=== PATIENT | female | born 1950 | race Caucasian/White ===

== ENCOUNTER 2017-10-04 14:08 | Day surgery (SDC) | payer MEDICARE, MEDICAID, SELFPAY ==
[2017-10-04 14:37] VITALS: BP 142/71; PULSE 78; RESP 16; TEMP 37.1; O2SAT 98; BMI 23.6
--- NOTE | 2017-10-04 14:47 | SUR.OPER ---
Supine on padded OR bed, head on pillow, arms secured on padded arm boards at <90 degrees abduction, legs uncrossed, safety belt at thigh, tape over blanket over lower legs.
[2017-10-04] MEDS: LACTATED RINGERS 1,000 ML 42 ML IV (14:50)
--- NOTE | 2017-10-04 15:08 | SUR.PREOP ---
pt states she had 2 tablesppons of coconut milk with water at 1000 with her pills anesthesia notified
[2017-10-04] MEDS: BUPIVACAINE 0.5% (PF) VIAL 30 ML INJ (15:32)
[2017-10-04] MEDS: LIDOCAINE 1% W/EPI INJ 20 ML INJ (15:33)
--- NOTE | 2017-10-04 15:45 | P.OP_ITS ---
Operative Date/Time/Diagnoses Date of procedure: 10/04/17 Time of procedure: 15:42 Pre-op diagnosis: Left subclavian Port-A-Cath no longer needed Procedure & Clinicians Procedure: Kait he was pretty removal of left chest PowerPort Same procedure as scheduled: Yes Indications: Chemotherapy completed and now no evidence of disease Surgeon: Misa Reyes Click Yes if Unassisted: Yes Anesthesia Type: MAC +/- (Dr. Cabrera) Operative Notes Findings: A PowerPort in good repair. Removed in a single piece Closure Type: primary Specimen(s): none sent Estimated Blood Loss (mL): 5 Procedure in detail: After obtaining informed consent, the patient was brought to the operating room and placed in the supine position on the operating table. Following successful induction of IV sedation with monitored anesthesia care, the chest was prepped and draped in the standard surgical fashion. A timeout was held per SCOAP protocol. Following infiltration with local anesthetic to create a field block, the existing healed incision was repeated. This was carried down through the skin and subcutaneous tissue to reveal the tubing of the implanted central venous device. The tubing was carefully dissected free from surrounding structures and delivered into the field. Pressure was held at the deltopectoral groove to prevent air embolus and backbleeding. After 5 minutes time, we continued with dissection of the remaining portion of the port. The reservoir itself remained in the pocket and has been incorporated into the tissue. This was carefully dissected free with judicious use of a scalpel. It was delivered into the field as a single piece with tubing attached. The incision was checked for hemostasis and irrigated with warm saline solution. Once we were satisfied that all was clean and dry, it was closed in 2 layers with Vicryl Monocryl sutures. Dermabond was applied to the skin incision. All sponge, needle, and instrument counts were correct at the conclusion of the case. The patient was allowed to awaken from sedation without difficulty and taken to the post anesthesia care unit in good condition. Complications: none Condition: stable Disposition: PACU Plan for aftercare: 1. Discharge to home 2. Follow-up as scheduled with [facility] 3. Follow-up our office for any concerns or problems
[2017-10-04 15:54] VITALS: BP 101/58; PULSE 71; RESP 16; TEMP 36.1; O2SAT 98
[2017-10-04 16:10] VITALS: BP 128/68; PULSE 74; RESP 16; TEMP 36; O2SAT 97
--- NOTE | 2017-11-13 16:55 | PM.HP.1 ---
History of Present Illness Date Patient Seen: 10/04/17 Time Patient Seen: 16:56 Chief complaint: [id number] Narrative: Very pleasant 66-year-old lady who is well known to me from prior visits. She presents today for removal of a Port-A-Cath. She had carries a diagnosis of locally recurrent breast malignancy and has completed chemotherapy. Her Port-A-Cath is no longer required. Patient History Surgical History History of bladder surgery (Acute) History of endometrial ablation (Acute) History of lumpectomy of right breast (Acute) Hx of bilateral mastectomy (Acute) Hx of dilation and curettage (Acute) Status post PICC central line placement (Acute) History of tonsillectomy Status post cholecystectomy Status post endometrial ablation Status post surgery (04/28/09) Family & Social History Social History: household members friend(s),none Tobacco & Substance use: Smoking Status Former smoker Substance Use Type does not use Meds Home Medications Medication Instructions Recorded Confirmed Type lorazepam 2 mg PO BID #0 08/17/12 11/02/17 History cholecalciferol (vitamin D3) 4,000 - 6,000 u PO QDAY #0 12/18/15 11/02/17 History [Vitamin D3] amitriptyline 50 mg PO HS #0 01/20/16 11/02/17 History [SUSTAIN EYE DROP] #0 03/16/16 11/02/17 History hydrocodone-acetaminophen 2 tab PO TID #0 05/18/16 11/02/17 History lidocaine-prilocaine 1 [place] TOPICAL PRN PRN #5 gm 05/18/16 11/02/17 Rx ascorbic acid (vitamin C) 1,500 mg PO BID #0 07/20/16 11/02/17 History multivitamin [Multiple Vitamins] 1 tab PO QDAY #0 07/20/16 11/02/17 History vitamin E 400 iu PO QDAY #0 07/20/16 11/02/17 History nefazodone 200 mg PO BID #0 11/29/16 11/02/17 History marya (Zingiber officinalis) 550 mg PO TID #0 01/10/17 11/02/17 History ondansetron 4 mg SUBLINGUAL Q6HP PRN #30 tab 03/07/17 11/02/17 Rx hydrocodone-acetaminophen [[place]] 1 tab PO Q6H PRN #30 tab MDD 6 10/04/17 11/02/17 Rx exemestane [Aromasin] 25 mg PO DAILY #90 tab 11/13/17 Rx Allergies Allergy/AdvReac Type Severity Reaction Status Date / Time walnut [WALNUT] Allergy Severe TONGUE Unverified 05/17/17 11:55 SWELLING Penicillins [PENICILLINS] Allergy Mild RASH all Unverified 05/17/17 11:55 cillins Review of Systems Review of Systems All systems reviewed & are unremarkable except as noted in HPI and below Exam Vital Signs (past 8 hours): Oxygen Delivery Method Room Air Narrative Exam Narrative: Very pleasant thin lady in no obvious distress HEENT: Normocephalic and atraumatic, pupils equal round reactive to light accommodation with anicteric sclera Lungs: Clear to auscultation bilaterally. Heart: Regular rate and rhythm without murmur rub or gallop. The port is noted in the left chest in the subclavian position. There is no evidence of erythema or drainage. Abdomen: Soft, nontender with active bowel sounds. Extremities: Warm well perfused Assessment & Plan Plan: Assessment/Plan Narrative: Very pleasant 66-year-old lady with a diagnosis of locally recurrent right breast cancer. She has completed chemotherapy and no longer has to use for her left subclavian port. We discussed risks and benefits of removing it and she has expressed desire to have the procedure.
--- NOTE | 2017-11-13 16:58 | P.HP_ITS ---
History of Present Illness Date Patient Seen: 10/04/17 Time Patient Seen: 16:56 Chief complaint: [id number] Narrative: Very pleasant 66-year-old lady who is well known to me from prior visits. She presents today for removal of a Port-A-Cath. She had carries a diagnosis of locally recurrent breast malignancy and has completed chemotherapy. Her Port-A-Cath is no longer required. Patient History Surgical History History of bladder surgery (Acute) History of endometrial ablation (Acute) History of lumpectomy of right breast (Acute) Hx of bilateral mastectomy (Acute) Hx of dilation and curettage (Acute) Status post PICC central line placement (Acute) History of tonsillectomy Status post cholecystectomy Status post endometrial ablation Status post surgery (04/28/09) Family & Social History Social History: household members friend(s),none Tobacco & Substance use: Smoking Status Former smoker Substance Use Type does not use Meds Home Medications Medication Instructions Recorded Confirmed Type lorazepam 2 mg PO BID #0 08/17/12 11/02/17 History cholecalciferol (vitamin D3) 4,000 - 6,000 u PO QDAY #0 12/18/15 11/02/17 History [Vitamin D3] amitriptyline 50 mg PO HS #0 01/20/16 11/02/17 History [SUSTAIN EYE DROP] #0 03/16/16 11/02/17 History hydrocodone-acetaminophen 2 tab PO TID #0 05/18/16 11/02/17 History lidocaine-prilocaine 1 [place] TOPICAL PRN PRN #5 gm 05/18/16 11/02/17 Rx ascorbic acid (vitamin C) 1,500 mg PO BID #0 07/20/16 11/02/17 History multivitamin [Multiple Vitamins] 1 tab PO QDAY #0 07/20/16 11/02/17 History vitamin E 400 iu PO QDAY #0 07/20/16 11/02/17 History nefazodone 200 mg PO BID #0 11/29/16 11/02/17 History marya (Zingiber officinalis) 550 mg PO TID #0 01/10/17 11/02/17 History ondansetron 4 mg SUBLINGUAL Q6HP PRN #30 tab 03/07/17 11/02/17 Rx hydrocodone-acetaminophen [[place]] 1 tab PO Q6H PRN #30 tab MDD 6 10/04/17 Rx exemestane [Aromasin] 25 mg PO DAILY #90 tab 11/13/17 Rx Allergies Allergy/AdvReac Type Severity Reaction Status Date / Time walnut [WALNUT] Allergy Severe TONGUE Unverified 05/17/17 11:55 SWELLING Penicillins [PENICILLINS] Allergy Mild RASH all Unverified 05/17/17 11:55 cillins Review of Systems Review of Systems All systems reviewed & are unremarkable except as noted in HPI and below Exam Vital Signs (past 8 hours): Oxygen Delivery Method Room Air Narrative Exam Narrative: Very pleasant thin lady in no obvious distress HEENT: Normocephalic and atraumatic, pupils equal round reactive to light accommodation with anicteric sclera Lungs: Clear to auscultation bilaterally. Heart: Regular rate and rhythm without murmur rub or gallop. The port is noted in the left chest in the subclavian position. There is no evidence of erythema or drainage. Abdomen: Soft, nontender with active bowel sounds. Extremities: Warm well perfused Assessment & Plan Plan: Assessment/Plan Narrative: Very pleasant 66-year-old lady with a diagnosis of locally recurrent right breast cancer. She has completed chemotherapy and no longer has to use for her left subclavian port. We discussed risks and benefits of removing it and she has expressed desire to have the procedure.
--- NOTE | 2017-11-30 20:51 | PM.HP.1 ---
History of Present Illness Date Patient Seen: 10/04/17 Time Patient Seen: 10:51 Chief complaint: [id number] Narrative: Very pleasant 66-year-old lady who is well known to me from prior visits. She presents today for removal of a Port-A-Cath. She had carries a diagnosis of locally recurrent breast malignancy and has completed chemotherapy. Her Port-A-Cath is no longer required. Patient History Medical History Anxiety (Acute) COPD (chronic obstructive pulmonary disease) (Acute) Chronic back pain (Acute) Closed head injury with concussion (Acute) Cytopenia (Acute) Depression (Acute) Fatigue (Acute) Fibromyalgia (Acute) GERD (gastroesophageal reflux disease) (Acute) HTN (hypertension) (Acute) History of DVT (deep vein thrombosis) (Acute) Kidney stones (Acute) Migraine headache (Acute) Osteoporosis (Acute) Pancytopenia (Acute) Port-A-Cath in place (Acute) Recurrent cancer of right breast (Acute) Staph infection (Acute) Uterine mass (Acute) Surgical History History of bladder surgery (Acute) History of endometrial ablation (Acute) History of lumpectomy of right breast (Acute) Hx of bilateral mastectomy (Acute) Hx of dilation and curettage (Acute) Status post PICC central line placement (Acute) History of tonsillectomy Status post cholecystectomy Status post endometrial ablation Status post surgery (04/28/09) Family & Social History Family History: Reviewed 11/30/17 by Misa Reyes MD Social History: household members friend(s),none Tobacco & Substance use: Smoking Status Former smoker Substance Use Type does not use Meds Home Medications Medication Instructions Recorded Confirmed Type cholecalciferol (vitamin D3) 4,000 - 6,000 u PO QDAY #0 12/18/15 11/14/17 History [Vitamin D3] amitriptyline 50 mg PO HS #0 01/20/16 11/14/17 History [SUSTAIN EYE DROP] #0 03/16/16 11/02/17 History hydrocodone-acetaminophen 2 tab PO TID #0 05/18/16 11/14/17 History lidocaine-prilocaine 1 [place] TOPICAL PRN PRN #5 gm 05/18/16 11/02/17 Rx ascorbic acid (vitamin C) 1,500 mg PO BID #0 07/20/16 11/14/17 History multivitamin [Multiple Vitamins] 1 tab PO QDAY #0 07/20/16 11/14/17 History vitamin E 400 iu PO QDAY #0 07/20/16 11/02/17 History nefazodone 200 mg PO BID #0 11/29/16 11/14/17 History marya (Zingiber officinalis) 550 mg PO TID #0 01/10/17 11/14/17 History ondansetron 4 mg SUBLINGUAL Q6HP PRN #30 tab 03/07/17 11/14/17 Rx exemestane [Aromasin] 25 mg PO DAILY #90 tab 11/13/17 11/14/17 Rx lorazepam 2 mg PO BID 11/14/17 11/14/17 History Allergies Allergy/AdvReac Type Severity Reaction Status Date / Time walnut [WALNUT] Allergy Severe TONGUE Verified 11/14/17 08:35 SWELLING Penicillins [PENICILLINS] Allergy Intermediate RASH all Verified 11/14/17 09:15 cillins Review of Systems Review of Systems All systems reviewed & are unremarkable except as noted in HPI and below Exam Vital Signs (past 8 hours): Oxygen Delivery Method Room Air Narrative Exam Narrative: Very pleasant elderly lady in no obvious distress. HEENT: Normocephalic and atraumatic, pupils equal round reactive to light accommodation with anicteric sclera Lungs: Clear to auscultation bilaterally Heart: Regular rate and rhythm without murmur rub or gallop Abdomen: Soft, nontender, active bowel sounds Extremities: Warm well perfused Chest: Power port in place in the left chest wall and without evidence of erythema or infection. Assessment & Plan Plan: Assessment/Plan Narrative: One full 67-year-old lady here for PowerPort removal. We discussed the risks and benefits of the procedure and she has expressed a desire to complete it today
== END 2017-10-04 16:15 | disposition home or self-care (01) ==
PROVIDERS: Family Provider Family Medicine; PCP Family Medicine; Visit Provider Surgery
PROC: (CPT 36590; principal; 2017-10-04 15:00)
DX: Z45.2 Encounter for adjustment and management of vascular access device (principal); Z85.3 Personal history of malignant neoplasm of breast; Z87.891 Personal history of nicotine dependence
CPT/HCPCS: 36590; J2250; J2405; J2704; J3010

== ENCOUNTER 2017-11-14 07:52 | Day surgery (SDC) | payer MEDICARE, MEDICAID, SELFPAY ==
[2017-11-14] MEDS: PROPARACAINE 0.5% OPHTH SOL 2 DROPS EYE-OP (08:55)
[2017-11-14 08:57] VITALS: BMI 18.1
[2017-11-14 09:01] VITALS: BP 137/70; PULSE 66; RESP 18; TEMP 37.1; O2SAT 97
[2017-11-14] MEDS: CATARACT EYE COMPOUND (10 DROPS/SYRINGE) 3 DROPS EYE-OP (09:04)
--- NOTE | 2017-11-14 09:40 | P.OP.PRE_ITS ---
Pre-operative Note Interval Note Changes: No
--- NOTE | 2017-11-14 09:40 | PM.PREOP ---
Pre-operative Note Interval Note Changes: No
--- NOTE | 2017-11-14 09:41 | P.OP_ITS ---
Operative Date/Time/Diagnoses Pre-op diagnosis: Cataract Right eye Post-op diagnosis: same Procedure & Clinicians Procedure: Cataract Surgery Same procedure as scheduled: Yes Surgeon: Go Noe Anesthesia Type: MAC +/- and Sedation Operative Notes Procedure in detail: Patient brought to the operating suite. Tetracaine drops placed in the right eye. Patient was prepped and draped in sterile manner. Wire lid speculum was placed in the eye. Betadine drops were placed on the eye. This was irrigated. Lidocaine jelly was placed on the eye. A paracentesis port was created with a side-port blade. 0.1 mL 1% preservative free lidocaine was injected into the anterior chamber. The anterior chamber was deepened with viscoelastic. 2.6 mm keratome was used to create a temporal clear corneal incision. Cystotome and Utrata forceps were used to create continuous tear capsulorrhexis. Balanced salt solution was used to hydro dissect the nucleus. The phacoemulsification handpiece was inserted and the nucleus was removed using the stop and chop technique. The irrigation aspiration handpiece was inserted and the remaining cortex was removed. Anterior chamber was deepened with viscoelastic. An Proctor ZCB00 intraocular lens with a power of 16.5 was injected into the capsular bag. Irrigation aspiration handpiece was inserted and the remaining viscoelastic was removed. Incision was hydrated with balanced salt solution and found to be leak free with pressure with Weck- Yohana sponges. 0.1 mL Vigamox injected anterior chamber. 0.3 mL Kenalog 10 mg was injected subconjunctivally. Lid speculum was removed. The patient left the operating room in excellent condition. Complications: none Condition: stable Disposition: same day surgery
[2017-11-14] MEDS: CHONDROIDTIN/SOD HYALURONATE 1.05 ML SYRINGE INTRAOCULA (09:56)
[2017-11-14] MEDS: LIDOCAINE JELLY 2% 5 ML 1 APPLIC TOP (09:56)
[2017-11-14] MEDS: MOXIFLOXACIN OPHTH DROPS 3 ML BOTTLE 2 DROPS INJ (09:56)
[2017-11-14] MEDS: BALANCED SALT IRRIG SOLN NO.2 500 ML, EPINEPHrine 1 MG IRR (09:57)
[2017-11-14] MEDS: PHENYLEPHRINE/LIDOCAINE VIAL (OR) 0.2 ML EYE-OP (09:57)
[2017-11-14] MEDS: TRIAMCINOLONE 50 MG/5 ML VIAL INJ (09:57)
[2017-11-14] MEDS: TETRACAINE 0.5% OPHTH DROPS 15 ML 2 DROPS EYE-RIGHT (09:57)
[2017-11-14 10:15] VITALS: BP 157/67; PULSE 77; RESP 16; TEMP 36.7; O2SAT 100
--- NOTE | 2017-11-14 10:30 | SUR.PHASEII ---
friend present for instructions, pt left when ready and left in stable condition.
== END 2017-11-14 10:26 ==
LOC: OR 07:54
PROVIDERS: PCP Family Medicine; Visit Provider Ophthalmology
DX: H25.11 Age-related nuclear cataract, right eye (principal); I10 Essential (primary) hypertension
CPT/HCPCS: J0171; J2250; J3010; J3301

== ENCOUNTER 2018-01-02 09:25 | Day surgery (SDC) | payer MEDICARE, MEDICAID, SELFPAY ==
[2018-01-02 10:04] VITALS: BP 126/77; PULSE 72; RESP 16; TEMP 36.4; O2SAT 95; BMI 23.9
[2018-01-02] MEDS: PROPARACAINE 0.5% OPHTH SOL 2 DROPS EYE-OP (10:05)
[2018-01-02] MEDS: CATARACT EYE COMPOUND (10 DROPS/SYRINGE) 3 DROPS EYE-OP (10:15)
--- NOTE | 2018-01-02 11:09 | P.OP.PRE_ITS ---
Pre-operative Note Interval Note Changes: No
--- NOTE | 2018-01-02 11:09 | P.OP_ITS ---
Operative Date/Time/Diagnoses Pre-op diagnosis: Nuclear Cataract Left eye Post-op diagnosis: same Procedure & Clinicians Surgeon: Go Noe Anesthesia Type: MAC +/- and Sedation Operative Notes Procedure in detail: Patient brought to the operating suite. Tetracaine drops placed in the left eye. Patient was prepped and draped in sterile manner. Wire lid speculum was placed in the eye. Betadine drops were placed on the eye. This was irrigated. Lidocaine jelly was placed on the eye. A paracentesis port was created with a side-port blade. 0.1 mL 1% preservative free lidocaine was injected into the anterior chamber. The anterior chamber was deepened with viscoelastic. 2.6 mm keratome was used to create a temporal clear corneal incision. Cystotome and Utrata forceps were used to create continuous tear capsulorrhexis. Balanced salt solution was used to hydro dissect the nucleus. The phacoemulsification handpiece was inserted and the nucleus was removed using the stop and chop technique. The irrigation aspiration handpiece was inserted and the remaining cortex was removed. Anterior chamber was deepened with viscoelastic. An Proctor ZCB00 intraocular lens with a power of 17.5 was injected into the capsular bag. Irrigation aspiration handpiece was inserted and the remaining viscoelastic was removed. Incision was hydrated with balanced salt solution and found to be leak free with pressure with Weck- Yohana sponges. 0.1 mL Vigamox injected anterior chamber. 0.3 mL Kenalog 10 mg was injected subconjunctivally. Lid speculum was removed. The patient left the operating room in excellent condition. Complications: none Condition: stable Disposition: same day surgery
--- NOTE | 2018-01-02 11:09 | PM.PREOP ---
Pre-operative Note Interval Note Changes: No
[2018-01-02] MEDS: PHENYLEPHRINE/LIDOCAINE VIAL (OR) 0.2 ML EYE-OP (11:24)
[2018-01-02] MEDS: MOXIFLOXACIN OPHTH DROPS 3 ML BOTTLE 2 DROPS INJ (11:24)
[2018-01-02] MEDS: CHONDROIDTIN/SOD HYALURONATE 1.05 ML SYRINGE INTRAOCULA (11:25)
[2018-01-02] MEDS: LIDOCAINE JELLY 2% 5 ML 1 APPLIC TOP (11:25)
[2018-01-02] MEDS: TRIAMCINOLONE 50 MG/5 ML VIAL INJ (11:25)
[2018-01-02] MEDS: TETRACAINE 0.5% OPHTH DROPS 15 ML 2 DROPS EYE-LEFT (11:26)
[2018-01-02] MEDS: BALANCED SALT IRRIG SOLN NO.2 500 ML, EPINEPHrine 1 MG IRR (11:26)
[2018-01-02 11:41] VITALS: BP 137/69; PULSE 59; RESP 15; TEMP 36.4; O2SAT 100
== END 2018-01-02 11:52 ==
LOC: OR 09:27
PROVIDERS: PCP Family Medicine; Visit Provider Ophthalmology
DX: H25.12 Age-related nuclear cataract, left eye (principal); I10 Essential (primary) hypertension
CPT/HCPCS: J0171; J2250; J3010; J3301

== ENCOUNTER → 2018-06-01 10:43 | Outpatient (CLI) | payer MEDICARE, MEDICAID, SELFPAY ==
--- NOTE | 2018-06-01 10:53 | DI.CT.S_ITS ---
PROCEDURE: CT SINUS SCREEN WO CON INDICATIONS: Anosmia TECHNIQUE: Noncontrast 3.0 mm axial images acquired from the frontal sinuses to the mid-sella, with coronal and sagittal reformats. For radiation dose reduction, the following was used: automated exposure control, adjustment of mA and/or kV according to patient size. COMPARISON: [facility], MR, BRAIN W&WO CONTRAST, 08/05/2016, 16:41. [facility], CT, HEAD WITHOUT CONTRAST, 08/05/2016, 0:39. FINDINGS: Image quality: Excellent. Maxillary Sinuses: There is partial absence of the medial taveras of the maxillary sinuses. There is a tiny mucous retention cyst seen along the medial wall of the right maxillary sinus, as on series 3 image 11. Ethmoid Air Cells: No bony remodeling or destruction. Sinuses are clear. Sphenoid Sinuses: No bony remodeling or destruction. Sinuses are clear. Frontal Sinuses: No bony remodeling or destruction. Sinuses are clear. Ostiomeatal Complexes: Ostiomeatal complexes are patent. However, they are constitutionally narrowed with bilateral orbital air cells Miscellaneous: There is apparent brain parenchymal volume loss seen involving the left parietal region, which may related to a remote infarct. This is stable compared to 2017. There is a small right-sided beck bullosa. There is moderate rightward nasal septal deviation seen, with a rightward directed bony nasal septal spur. IMPRESSION: No significant active paranasal sinus disease is seen. Partial absence of the medial taveras of the maxillary sinuses. Please correlate with known patient history. Narrowed (yet patent) ostiomeatal complexes. Moderate rightward nasal septal deviation, with a rightward directed bony nasal septal spur. Dictated by: Jeremiah Bernardo M.D. on 06/01/2018 at 10:58 Approved by: Jeremiah Bernardo M.D. on 06/01/2018 at 11:01
== END ==
PROVIDERS: PCP Family Medicine; Visit Provider Otolaryngology
DX: R43.0 Anosmia (principal); J34.89 Other specified disorders of nose and nasal sinuses; J34.2 Deviated nasal septum; J34.3 Hypertrophy of nasal turbinates
CPT/HCPCS: 70486

== ENCOUNTER → 2018-10-26 11:41 | Outpatient (CLI) | payer MEDICARE, MEDICAID, SELFPAY ==
[2018-10-26 12:04] LABS: Add Manual Diff / Slide Review NO; Basophils Absolute Auto 0 /uL (0-100); Basophils Percent Auto 0.4 % (0-2); Eosinophils Absolute Auto 100 /uL (0-450); Eosinophils Percent Auto 4.5 % (2-4); Hematocrit 38.2 % (36-46); Hemoglobin 13.1 g/dL (12.0-16.0); Lymphocytes Absolute Auto 900 /uL (1100-4500); Lymphocytes Percent Auto 27.9 % (25-40); Mean Corpuscular HGB Conc 34.3 % (30-36); Mean Corpuscular Hemoglobin 31.5 PG (26-34); Mean Corpuscular Volume 91.7 fL (80-100); Monocytes Absolute Auto 400 /uL (0-900); Monocytes Percent Auto 11.7 % (3-14); Neutrophils Absolute Auto 1700 /uL (1500-7000); Neutrophils Percent Auto 55.5 % (50-75); Platelet Count 177 X10^3/uL (150-400); Red Blood Cell Count 4.16 X10^6/uL (4.0-5.2); Red Cell Distribution Width 13.5 % (11.6-14.8); White Blood Cell Count 3.1 X10^3/uL (4.5-11.0)
[2018-10-26 12:15] LABS: Alanine Aminotransferase 22 IU/L (9-52); Albumin 4.6 g/dL (3.5-5.0); Albumin Globulin Ratio 1.5 (1.0-2.8); Alkaline Phosphatase 57 U/L (38-126); Aspartate Aminotransferase 31 IU/L (14-36); Bilirubin Total 0.6 mg/dL (0.2-1.3); Blood Urea Nitrogen 13 mg/dL (7-17); Carbon Dioxide 29 mmol/L (22-32); Chloride 100 mmol/L (98-107); Estimated Glomerular Filt Rate 55.3 mL/min (>60); Glucose 85 mg/dL (80-110); HEMOLYSIS < 15 (0-50); Lactate Dehydrogenase 442 U/L (313-618); Sodium 140 mmol/L (137-145); Total Protein 7.6 g/dL (6.3-8.2)
[2018-10-26 12:24] LABS: HEMOLYSIS < 15 (0-50); Iron 78 ug/dL (37-170)
[2018-10-26 12:35] LABS: Percent Iron Saturation 22 % (15-50); Total Iron Binding Capacity 352 ug/dL (265-497); Transferrin 310 mg/dL (206-381)
[2018-10-26 12:40] LABS: Vitamin D 25 Hydroxy (D3) 66.8 ng/mL (30.0-100.0)
[2018-10-26 12:52] LABS: Ferritin 66.1 ng/mL (11.1-264)
[2018-10-26 13:23] LABS: Folate > 20.0 ng/mL (2.76-20.0)
== END ==
PROVIDERS: PCP Family Medicine; Visit Provider Internal Medicine Hematology & Oncology
DX: C50.919 Malignant neoplasm of unspecified site of unspecified female breast (principal)
CPT/HCPCS: 36415; 80053; 82306; 82728; 82746; 83540; 83550; 83615; 85025

== ENCOUNTER → 2018-11-09 13:26 | Outpatient (CLI) | payer MEDICARE, MEDICAID, SELFPAY | PROVIDERS: PCP Family Medicine; Visit Provider Internal Medicine Hematology & Oncology | DX: C50.919 Malignant neoplasm of unspecified site of unspecified female breast (principal); M81.0 Age-related osteoporosis without current pathological fracture; Z78.0 Asymptomatic menopausal state; Z87.891 Personal history of nicotine dependence | CPT/HCPCS: 77080; 77081 ==

== ENCOUNTER 2019-10-15 11:26 | Emergency (ER) | payer MEDICARE, MEDICAID, SELFPAY ==
[2019-10-15] VITALS (7 sets, daily range): BP systolic 185–231; BP diastolic 77–111; PULSE 73–79; RESP 15; TEMP 36.6; O2SAT 94–98; BMI 25.9
--- NOTE | 2019-10-15 11:39 | DI.RAD.S_ITS ---
PROCEDURE: XR WRIST LT MIN 3V INDICATIONS: s/p FOOSH, pain in wrist, hand, FA TECHNIQUE: 4 views of the wrist were acquired. COMPARISON: None. FINDINGS: Bones: Acute impacted distal radial and ulnar shaft fractures are seen with minimal dorsal and medial displacement at fracture sites and shortening of distal radial and ulnar shaft. Minimally displaced ulnar styloid tip fracture is also seen. No suspicious bony lesions. Scaphoid view: Scaphoid is grossly intact. Soft tissues: No suspicious soft tissue calcifications. IMPRESSION: Acute impacted distal radial and ulnar shaft fractures as above. Minimally displaced ulnar styloid tip fracture. Dictated by: Sushant Laughlin M.D. on 10/15/2019 at 12:35 Approved by: Sushant Laughlin M.D. on 10/15/2019 at 12:54
--- NOTE | 2019-10-15 11:39 | DI.RAD.S_ITS ---
PROCEDURE: XR HIP W PEL IF DONE LT 2V INDICATIONS: s/p FOOSH and fell on hip, pain in wrist, hand, FA, hip pain TECHNIQUE: AP pelvis with lateral view(s) of the left hip(s). COMPARISON: None. FINDINGS: Bones: No fractures or dislocations. Pelvic ring appears intact. No suspicious bony lesions. Bilateral hip joint osteoarthritic changes are seen. No evidence of avascular necrosis of femoral head. Soft tissues: The visualized bowel gas pattern is normal. No suspicious soft tissue calcifications. IMPRESSION: No gross acute pelvic or left hip fracture. No hip dislocation. Bilateral hip joint osteoarthritis. Dictated by: Sushant Laughlin M.D. on 10/15/2019 at 12:54 Approved by: Sushant Laughlin M.D. on 10/15/2019 at 12:54
--- NOTE | 2019-10-15 11:39 | DI.RAD.S_ITS ---
PROCEDURE: XR FOREARM RT 2V INDICATIONS: s/p FOOSH, pain in wrist, hand, FA TECHNIQUE: 2 views of the forearm were acquired. COMPARISON: None. FINDINGS: Bones: Acute slightly impacted distal radial and ulnar shaft fractures are seen with minimal dorsal and medial displacement at fracture site. Minimally displaced ulnar styloid tip fracture is also noted. No dislocation. Wrist joint osteoarthritic changes are seen. No suspicious bony lesions. Soft tissues: No suspicious soft tissue calcifications or masses. IMPRESSION: Acute impacted and minimally displaced distal radial and ulnar shaft fractures. Minimally displaced ulnar styloid tip fracture. Dictated by: Sushant Laughlin M.D. on 10/15/2019 at 12:32 Approved by: Sushant Laughlin M.D. on 10/15/2019 at 12:35
--- NOTE | 2019-10-15 11:43 | ED_ITS ---
HPI - Fall <Reymundo CINDY Estrada - Last Filed: 10/15/19 14:29> General Chief Complaint: Fall Stated Complaint: GLF Time Seen by Provider: 10/15/19 11:26 Source: patient Mode of arrival: Ambulatory Limitations: no limitations History of Present Illness HPI Narrative: This is a 68 year female, nonsmoker, who has history of osteoporosis and fibromyalgia presents to ED with [facility] from home with chief complain of non dominant hand left wrist, forearm, hand and left hip pain. She had fell backwards on outstretched arm after she accidentally tripped right heel on chair with her body twisted and landed on left buttock. She denies on anticoagulants or platelets. She denies hitting her head or reports neck pain. Patient states takes hydrocodone 10/325 2 tabs twice a day with Ativan 1mg for chronic pain and fibromyalgia. She reports pain is 10/10 and this increases with movements or when it is touched. Patient reports is able to move her fingers but with pain and intact sensation. Patient is able to move her toes with intact sensation distally in left leg. Related Data Home Medications Medication Instructions Recorded Confirmed cholecalciferol (vitamin D3) 4,000 - 6,000 u PO QDAY #0 12/18/15 10/25/18 [Vitamin D3] amitriptyline 50 mg PO HS #0 01/20/16 10/25/18 [SUSTAIN EYE DROP] #0 03/16/16 11/02/17 hydrocodone-acetaminophen 2 tab PO TID #0 05/18/16 10/25/18 ascorbic acid (vitamin C) 1,500 mg PO BID #0 07/20/16 10/25/18 multivitamin [Multiple Vitamins] 1 tab PO QDAY #0 07/20/16 10/25/18 nefazodone 200 mg PO BID #0 11/29/16 10/25/18 marya (Zingiber officinalis) 550 mg PO TID #0 01/10/17 10/25/18 lorazepam 1 mg PO BID 11/14/17 10/25/18 Previous Rx's Medication Instructions Recorded exemestane [Aromasin] 25 mg PO DAILY #90 tab 10/25/18 ondansetron 4 mg SUBLINGUAL Q6HP PRN #30 tab 10/25/18 Allergies Allergy/AdvReac Type Severity Reaction Status Date / Time walnut [WALNUT] Allergy Severe TONGUE Verified 10/15/19 11:29 SWELLING Penicillins [PENICILLINS] Allergy Intermediate RASH all Verified 10/15/19 11:29 cillins Review of Systems <CINDY Bradley - Last Filed: 10/15/19 14:29> Review of Systems Narrative: General: Denies fever, chills, fatigue, malaise, sweats. HEENT: Denies sinus pain, ear pain, sore throat, difficulty swallowing, dizziness. Respiratory: Denies dyspnea, cough, wheezing, hemoptysis, sputum. Cardiovascular: Denies chest pain, palpitations, orthopnea, edema. Gastrointestinal: Denies nausea, vomiting, abdominal pain, diarrhea, c onstipation, melena. : Denies dysuria, frequency, incontinence, hematuria, urinary retention. Musculoskeletal: See HPI Skin: Denies rash, skin lesions, or other. Neurologic: Denies weakness, headache, numbness, change in speech, confusion, seizures, incoordination. Psychiatric: No concerning psychosocial issues. 12-point review of systems is negative except for those stated above. Patient History <CINDY Bradley - Last Filed: 10/15/19 14:29> Medical History Anxiety (Acute) Chronic back pain (Acute) Closed head injury with concussion (Acute) COPD (chronic obstructive pulmonary disease) (Acute) Cytopenia (Acute) Depression (Acute) Fatigue (Acute) Fibromyalgia (Acute) GERD (gastroesophageal reflux disease) (Acute) History of DVT (deep vein thrombosis) (Acute) HTN (hypertension) (Acute) Kidney stones (Acute) Migraine headache (Acute) Osteoporosis (Acute) Pancytopenia (Acute) Port-A-Cath in place (Acute) Recurrent cancer of right breast (Acute) Staph infection (Acute) Uterine mass (Acute) Surgical History History of bladder surgery (Acute) History of endometrial ablation (Acute) History of lumpectomy of right breast (Acute) History of tonsillectomy Hx of bilateral mastectomy (Acute) Hx of dilation and curettage (Acute) Status post cholecystectomy Status post endometrial ablation Status post PICC central line placement (Acute) Status post surgery (04/28/09) Family History Mother Breast cancer Social History household members: friend(s) and none occupational status: previously employed Smoking Status: Former smoker alcohol intake: never substance use type: does not use Smoking Status: Former smoker alcohol intake frequency: holidays/special occasions only Substance Use Type: does not use Exam <CINDY Bradley - Last Filed: 10/15/19 14:29> Narrative Exam Narrative: GEN: Alert, oriented x 3, thin appearing and in moderate distress from pain. Head: Normal cephalic, atraumatic. No scalp or temporal tenderness, palpable mass or rash. EYES: Pupils are equal, round, and reactive to light and accommodation. Extraocular muscles are intact bilaterally. There is no subconjunctival hemorrhage, exudate and sclera non-icteric. ENT: Hearing grossly intact. Nose without bleeding, purulent discharge or deviation. Airway patent. Neck: Trachea in midline. No JVD, non-tender without lymphadenopathy. No masses or thyroid megaly. Supple, non-tender and no meningeal signs. CARDIAC: Normal regular rate and rhythm without murmurs, gallops, or rubs. No chest wall tenderness. No peripheral edema, cyanosis or pallor. Capillary refill is less than 2 seconds. RESPIRATORY: Lungs are clear to auscultate bilaterally. No cough, wheezes, rales, or rhonchi. No stridor, respiratory distress, increase work of breathing, or accessary muscle used. ABD: Abdomen soft, nontender and non-distended. No guarding or rebound tenderness to palpate. Bowel sounds are normal in all 4 quadrants. There is no palpable masses or organomegaly. SKIN: Warm, dry, normal color for patient. No erythema, lesions or rash over visible areas. BACK: Nontender without deformity or crepitance. No flank tenderness. NEUROLOGICAL: Alert and oriented to place, time and person. Sensation and motor function intact bilaterally. No facial droops, dysphasia. PSYCHIATRIC: Good judgement and reason, without hallucinations. Initial Vital Signs Initial Vital Signs: Vital Signs Temperature 97.8 F 10/15/19 11:24 Pulse Rate 79 10/15/19 11:24 Respiratory Rate 15 10/15/19 11:24 Blood Pressure 231/91 H 10/15/19 11:24 Pulse Oximetry 98 10/15/19 11:24 Extrem Left upper extremity: elbow/forearm Details: normal to inspection, tenderness Location: of the mid-shaft forearm, abnormal ROM Details: pain with active ROM and pain with passive ROM and distal pulses intact; no swelling and no abrasions, wrist Details: abnormal to inspection Details: obvious deformity and joint swelling, tenderness Location: of the distal radius, of the distal ulna, of the anatomic snuffbox, of the dorsal wrist and of the volar wrist, swelling Location: of the dorsal wrist (radial aspect), abnormal ROM Details: held in an abnormal fashion Details: in flexion and pain with active ROM, ecchymosis (radial aspect ), deformity Details: other (flexed wrist to keep comfort), normal vascular exam and radial pulse present; no unusual warmth, no abrasions and no lacerations and hand Details: normal to inspection, normal capillary refill, neuromotor exam normal, neurosensory exam normal, tenderness (metacarpal), vascular exam Details: radial pulse present and normal capillary refill and normal ROM of fingers Left lower extremity: hip/thigh Details: tenderness Location: of the hip and normal ROM Psych Appearance: well kempt Mood: anxious mood and irritable mood Affect: anxious affect and irritable affect <Jenifer Newton MD - Last Filed: 10/15/19 14:59> Initial Vital Signs Initial Vital Signs: Vital Signs Temperature 97.8 F 10/15/19 11:24 Pulse Rate 79 10/15/19 11:24 Respiratory Rate 15 10/15/19 11:24 Blood Pressure 231/91 H 10/15/19 11:24 Pulse Oximetry 98 10/15/19 11:24 Scores <CINDY Bradley - Last Filed: 10/15/19 14:29> GCS [place] coma scale eye opening: Spontaneous [place] coma scale verbal response: Orientated [place] coma scale motor response: Obey commands [place] coma scale total score: 15 Course <CINDY Bradley - Last Filed: 10/15/19 14:29> Orders Ordered: ED Orders 10/15/19 11:39 XR forearm LT 2V Stat XR hip w pel if done LT 2V Stat XR wrist LT min 3V Stat Discontinued Medications Lorazepam (Ativan) 1 mg PO NOW ONE Stop: 10/15/19 11:46 Last Admin: 10/15/19 11:54 Dose: 1 mg Documented by: GISELLE Oxycodone/Acetaminophen (Percocet 5/325) 2 tab PO NOW ONE Stop: 10/15/19 11:40 Last Admin: 10/15/19 11:54 Dose: 2 tab Documented by: GISELLE Reevaluation(s) Reevaluation #1: Patient reports pain improved, slightly increased swelling around the wrist worsen radial aspect of far pain Time: 13:45 Consultations Consultation #1: Dr. Driscoll consulted with the xray and physical findings and he recommended sugar-tong splint with sling and pain management and to follow-up at the clinic and of this week or next week. Time: 14:00 Vital Signs Vital signs: Vital Signs - 8 hr 10/15/19 11:24 10/15/19 12:06 10/15/19 12:29 Temperature 97.8 F Pulse Rate 79 77 Respiratory Rate 15 Blood Pressure 231/91 H 196/81 H Pulse Oximetry 98 94 10/15/19 12:31 10/15/19 13:00 10/15/19 13:02 Temperature Pulse Rate 73 Respiratory Rate Blood Pressure 185/111 H 199/77 H Pulse Oximetry 96 10/15/19 13:22 Temperature Pulse Rate 76 Respiratory Rate Blood Pressure Pulse Oximetry 97 <Jenifer Newton MD - Last Filed: 10/15/19 14:59> Orders Ordered: ED Orders 10/15/19 11:39 XR forearm LT 2V Stat XR hip w pel if done LT 2V Stat XR wrist LT min 3V Stat Discontinued Medications Lorazepam (Ativan) 1 mg PO NOW ONE Stop: 10/15/19 11:46 Last Admin: 10/15/19 11:54 Dose: 1 mg Documented by: GISELLE Oxycodone/Acetaminophen (Percocet 5/325) 2 tab PO NOW ONE Stop: 10/15/19 11:40 Last Admin: 10/15/19 11:54 Dose: 2 tab Documented by: GISELLE Vital Signs Vital signs: Vital Signs - 8 hr 10/15/19 11:24 10/15/19 12:06 10/15/19 12:29 Temperature 97.8 F Pulse Rate 79 77 Respiratory Rate 15 Blood Pressure 231/91 H 196/81 H Pulse Oximetry 98 94 10/15/19 12:31 10/15/19 13:00 10/15/19 13:02 Temperature Pulse Rate 73 Respiratory Rate Blood Pressure 185/111 H 199/77 H Pulse Oximetry 96 10/15/19 13:22 Temperature Pulse Rate 76 Respiratory Rate Blood Pressure Pulse Oximetry 97 MDM - Fall <CINDY Bradley - Last Filed: 10/15/19 14:29> Differential Diagnosis Differential diagnosis: Likely fracture of wrist and other (Fracture of forearm, forearm pain, hip fracture, hips contusion) Medical Records Attestation: I reviewed the patient's medical records. Imaging Data XR-Wrist LT: Radiologist's Impression: [address] [address] XRay Report Signed Patient: Sandrine Hastings [facility]#: [id number] : [id number] Age/Sex: 68 / FDate of Service: 10/15/19 Loc: ED Accession Number: [id number] Procedure: XR wrist LT min 3V Ordering Provider: Reymundo Estrada PROCEDURE: XR WRIST LT MIN 3V INDICATIONS: s/p FOOSH, pain in wrist, hand, FA TECHNIQUE: 4 views of the wrist were acquired. COMPARISON: None. FINDINGS: Bones: Acute impacted distal radial and ulnar shaft fractures are seen with minimal dorsal and medial displacement at fracture sites and shortening of distal radial and ulnar shaft. Minimally displaced ulnar styloid tip fracture is also seen. No suspicious bony lesions. Scaphoid view: Scaphoid is grossly intact. Soft tissues: No suspicious soft tissue calcifications. IMPRESSION: Acute impacted distal radial and ulnar shaft fractures as above. Minimally displaced ulnar styloid tip fracture. Dictated by: Sushant Laughlin M.D. on 10/15/2019 at 12:35 Approved by: Sushant Laughlin M.D. on 10/15/2019 at 12:54 XR-Forearm LT: Radiologist's Impression: [address] [address] XRay Report Signed Patient: Sandrine Hastings [facility]#: [id number] : [id number] Age/Sex: 68 / FDate of Service: 10/15/19 Loc: ED Accession Number: [id number] Procedure: XR forearm LT 2V Ordering Provider: Reymundo Estrada PROCEDURE: XR FOREARM RT 2V INDICATIONS: s/p FOOSH, pain in wrist, hand, FA TECHNIQUE: 2 views of the forearm were acquired. COMPARISON: None. FINDINGS: Bones: Acute slightly impacted distal radial and ulnar shaft fractures are seen with minimal dorsal and medial displacement at fracture site. Minimally displaced ulnar styloid tip fracture is also noted. No dislocation. Wrist joint osteoarthritic changes are seen. No suspicious bony lesions. Soft tissues: No suspicious soft tissue calcifications or masses. IMPRESSION: Acute impacted and minimally displaced distal radial and ulnar shaft fractures. Minimally displaced ulnar styloid tip fracture. Dictated by: Sushant Laughlin M.D. on 10/15/2019 at 12:32 Approved by: Sushant Laughlin M.D. on 10/15/2019 at 12:35 XR-Hip LT: Radiologist's Impression: [place] [address] XRay Report Signed Patient: Sandrine Hastings [facility]#: [id number] : [id number] Age/Sex: 68 / FDate of Service: 10/15/19 Loc: ED Accession Number: [id number] Procedure: XR hip w pel if done LT 2V Ordering Provider: Reymundo Estrada PROCEDURE: XR HIP W PEL IF DONE LT 2V INDICATIONS: s/p FOOSH and fell on hip, pain in wrist, hand, FA, hip pain TECHNIQUE: AP pelvis with lateral view(s) of the left hip(s). COMPARISON: None. FINDINGS: Bones: No fractures or dislocations. Pelvic ring appears intact. No suspicious bony lesions. Bilateral hip joint osteoarthritic changes are seen. No evidence of avascular necrosis of femoral head. Soft tissues: The visualized bowel gas pattern is normal. No suspicious soft tissue calcifications. IMPRESSION: No gross acute pelvic or left hip fracture. No hip dislocation. Bilateral hip joint osteoarthritis. Dictated by: Sushant Laughlin M.D. on 10/15/2019 at 12:54 Approved by: Sushant Laughlin M.D. on 10/15/2019 at 12:54 [facility] Narrative Medical decision making narrative: This is a 68 year female who has osteoporosis presents to ED after FOOSH and landed on left arm and hip falling backwards after tripped. Left wrist has moderate swelling on radial aspect. Distal pulse and sensation is intact. Patient is able to move her fingers but with pain. X-ray test shows acute impacted distal radial and ulna shaft fracture with minimally displaced ulna styloid tip fracture. Appreciate Dr. Driscoll's recommendation. Affected arm has been placed done sugar-tong splint and applied a sling for elevation. Patient advised to use her pain medications up to 3 to 4 times a day as needed for discomfort and to contact her primary care physician to inform about the fracture. Advised to RICE therapy and to follow-up with [facility]. Return precautions were discussed with patient and advised to be careful with sedation and balance along constipation when she is on pain medication and Ativan. Patient verbalized understanding and agreement with the treatment plan. Discharge Plan Departure Patient Disposition: Home Clinical Impression: Forearm fractures, both bones, closed Qualifiers: Encounter type: initial encounter Laterality: left Qualified Code(s): S52.92XA - Unspecified fracture of left forearm, initial encounter for closed fracture Instructions: DI for Forearm Fracture Activity Restrictions/Additional Instructions: You have been diagnosed with [left distal radial and ulna shaft fracture with mildly displaced and impacted with minimally displaced ulna styloid tip fracture. You arm has been placed on sugar-tong splint and please wear this all time and use sling to elevate affected arm. Please avoid getting it wet.]. What to do: *Take your medications as directed. You can use your pain medication more frequently for severe pain. Ibuprofen 400 mg up to 3 to 4 times a day as needed for pain and inflammation to decrease swelling. Cool pack frequently for next couple of days. And elevate affected arm to decrease swelling. *Follow up with your primary care provider in 2-3 days, call for an appointment. Please follow-up with [facility] orthopedist by calling the office. Let them know you were seen in the ED and that we asked you to be seen in follow up. *Return to ED if you have any new, worsening, or concerning symptoms, such as [worsening pain, tingling/numbness/pale fingertips, chest pain, breathing difficulty, unable to tolerate fluids or any acute concerns]. Prescriptions: No Action cholecalciferol (vitamin D3) [Vitamin D3] 2,000 UNIT tablet 4,000 - 6,000 u PO QDAY Qty: 0 RF: 0 amitriptyline 50 MG tablet 50 mg PO HS Qty: 0 RF: 0 [SUSTAIN EYE DROP] Qty: 0 RF: 0 hydrocodone-acetaminophen 10 MG/300 MG tablet 2 tab PO TID Qty: 0 RF: 0 multivitamin [Multiple Vitamins] 1 EACH tablet 1 tab PO QDAY Qty: 0 RF: 0 ascorbic acid (vitamin C) 500 MG tablet 1,500 mg PO BID Qty: 0 RF: 0 nefazodone 100 MG tablet 200 mg PO BID Qty: 0 RF: 0 marya (Zingiber officinalis) 550 MG capsule 550 mg PO TID Qty: 0 RF: 0 exemestane [Aromasin] 25 mg Tablet 25 mg PO DAILY Qty: 90 RF: 1 ondansetron 4 MG tablet,disintegrating 4 mg Sublingual Q6HP PRN (Reason: Nausea) Qty: 30 RF: 2 lorazepam 2 mg Tablet 1 mg PO BID RF: 0 Referrals: [facility] [Provider Group] Bobby Talamantes MD [Primary Care Provider] - <Jenifer Newton MD - Last Filed: 10/15/19 14:59> Cosign ED Attending Cosignature Attestation: I was immediately available in the department for consultation throughout this patient's visit. I agree with documentation as above. Jenifer Newton MD
[2019-10-15] MEDS: LORazepam 0.5 MG TABLET 1 MG PO (11:54)
[2019-10-15] MEDS: OXYCODONE/ACETAMINOPHEN 5/325 TABLET 2 TAB PO (11:54)
== END 2019-10-15 15:00 | disposition home or self-care (01) ==
PROVIDERS: Emergency Provider Nurse Practitioner Family; PCP Family Medicine
DX: S52.92XA Unspecified fracture of left forearm, initial encounter for closed fracture (principal); W19.XXXA Unspecified fall, initial encounter
CPT/HCPCS: 29105; 73090; 73110; 73502; 99283

== ENCOUNTER → 2019-12-19 11:10 | Outpatient (CLI) | payer MEDICARE, MEDICAID, SELFPAY ==
--- NOTE | 2019-12-19 12:48 | DI.CT.S_ITS ---
PROCEDURE: CT CHEST WO CON INDICATIONS: breast cancer, chest pain TECHNIQUE: Noncontrast 5 mm thick sections acquired from the pulmonary apices to the posterior costophrenic angles. 1 mm lung window, 5 mm thick coronal and sagittal and 7 mm axial MIP reformats were then acquired. For radiation dose reduction, the following was used: automated exposure control, adjustment of mA and/or kV according to patient size. COMPARISON: [facility], CT, CHEST/ABD/PEL WITH CONTRAST, 09/15/2016, 15:27. FINDINGS: Image quality: Excellent. Lungs and pleura: Severe diffuse centrilobular emphysematous disease stable compared to the prior examination. Right lung apex pleural-parenchymal scarring is stable. No acute air space opacities. No pleural effusions or pneumothorax. Central and peripheral airways are patent and normal in caliber. Mediastinum: Heart size is normal. No pericardial effusion. No mediastinal adenopathy by size criteria. Thoracic aorta and central pulmonary arteries are normal in size. Esophagus is normal in caliber. No hiatal hernia. Bones and chest wall: Status post bilateral mastectomies. No suspicious bony lesions. 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 Thoracic spine degenerative disc disease. No vertebral body compression fractures. No axillary or supraclavicular adenopathy by size criteria. Thyroid gland is within normal limits. Abdomen: Pneumobilia is stable compared to prior examination likely related to prior sphincterotomy. Gallbladder is surgically absent Visualized upper abdominal solid organs and bowel loops otherwise appear normal in the absence of contrast. IMPRESSION: 1. Stable examination compared September 15, 2016. 2. No evidence of metastatic disease. 3. Lung consolidation or pleural effusions. 4. Severe bilateral lung emphysematous disease. Dictated by: Helen Perez MD, PhD on 12/19/2019 at 16:13 Approved by: Helen Perez MD, PhD on 12/19/2019 at 16:19
== END ==
PROVIDERS: PCP Family Medicine; Referring Provider Internal Medicine Hematology & Oncology; Visit Provider Internal Medicine Hematology & Oncology
DX: C50.919 Malignant neoplasm of unspecified site of unspecified female breast (principal); R07.9 Chest pain, unspecified; J43.2 Centrilobular emphysema; Z90.13 Acquired absence of bilateral breasts and nipples; Z90.49 Acquired absence of other specified parts of digestive tract
CPT/HCPCS: 71250

== ENCOUNTER → 2020-12-17 10:43 | Outpatient (CLI) | payer MEDICARE, MEDICAID, SELFPAY | PROVIDERS: PCP Family Medicine; Referring Provider Internal Medicine Hematology & Oncology; Visit Provider Internal Medicine Hematology & Oncology | DX: M81.0 Age-related osteoporosis without current pathological fracture (principal); Z78.0 Asymptomatic menopausal state; C50.919 Malignant neoplasm of unspecified site of unspecified female breast; Z87.891 Personal history of nicotine dependence | CPT/HCPCS: 77080; 77081 ==

== ENCOUNTER → 2021-06-16 10:28 | Outpatient (CLI) | payer MEDICARE, MEDICAID, SELFPAY ==
--- NOTE | 2021-06-16 10:29 | DI.US.S_ITS ---
PROCEDURE: US ABDOMEN COMPLETE INDICATIONS: BREAST CANCER WITH ABNORMAL LFTS TECHNIQUE: Real-time scanning was performed of the abdominal and retroperitoneal organs, with image documentation. COMPARISON: [facility], US, ABDOMEN COMPLETE, 03/11/2008, 9:33. FINDINGS: Liver: In this patient with this given history, scrutiny is given to the liver in this patient with this given history. No liver masses are seen. Liver demonstrates normal size and overall normal echogenicity. Gallbladder: Removed. Biliary ducts: Intrahepatic bile ducts are non-dilated. Extrahepatic bile duct caliber measures 11 mm. Normal is 6-7 mm or less in diameter, or 10 mm or less post-cholecystectomy. Pancreas: Visualized portions of the pancreas are sonographically normal. Spleen: Spleen is normal in size and homogeneous in echotexture. Kidneys: Kidneys are normal in size and echotexture. Right kidney measures 9 cm long; left kidney measures 10.4 cm long. No hydronephrosis or nephrolithiasis. No solid masses. Aorta: Visualized aorta is normal in caliber at less than 3 cm. Iliacs: Proximal common iliac arteries are normal in caliber at less than 2.5 cm. IVC: Intrahepatic inferior vena cava is patent. Miscellaneous: No free abdominal fluid. IMPRESSION: Normal appearing liver, without masses. Cholecystectomy, with mild extrahepatic biliary ductal dilatation. If clinically appropriate, an MRCP could be considered for further evaluation (assuming that there is no contraindication to MRI). Dictated by: Jeremiah Bernardo M.D. on 06/16/2021 at 10:46 Approved by: Jeremiah Bernardo M.D. on 06/16/2021 at 10:47
== END ==
PROVIDERS: PCP Family Medicine; Referring Provider Internal Medicine Hematology & Oncology; Visit Provider Internal Medicine Hematology & Oncology
DX: C50.919 Malignant neoplasm of unspecified site of unspecified female breast (principal); R74.01 Elevation of levels of liver transaminase levels
CPT/HCPCS: 76700

== ENCOUNTER → 2021-09-23 09:38 | Outpatient (CLI) | payer MEDICARE, MEDICAID, SELFPAY ==
--- NOTE | 2021-09-23 09:41 | DI.US.S_ITS ---
PROCEDURE: US PELVIC COMPLETE INDICATIONS: Cramping off/on for the past 9 months TECHNIQUE: Real-time scanning was performed of the pelvic organs, with image documentation. Additional endovaginal scanning was necessary due to incomplete visualization of the adnexal and endometrial structures by transabdominal scanning. COMPARISON: [facility], US, PELVIC COMPLETE, 05/30/2011, 11:04. FINDINGS: Uterus: Uterus is anteverted and normal in size for age at 3.6 x 2.3 x 3.9 cm. The myometrium is homogeneous. The endometrium measures 4 mm combined thickness. Ovaries: The ovaries were not visualized. No adnexal mass visualized. Other: No pathologic free abdominal or pelvic fluid. IMPRESSION: 1. The ovaries were not visualized, likely due to bowel gas and/or senescent change. No adnexal mass visualized. 2. Unremarkable sonographic appearance of the uterus for age. We strive to produce accurate, complete, and clear reports of imaging services. To assist us in improving patient care, this report was composed using standard report templates and voice recognition software. Therefore, it may contain abnormal punctuation, insertions and/or omissions. Occasional wrong-word or sound-alike substitutions may occur. Though we review the report and make efforts to correct it, we do recommend that the report be read carefully in proper context to recognize any text inaccuracies. Dictated by: Vasu Prather M.D. on 09/23/2021 at 18:03 Approved by: Vasu Prather M.D. on 09/23/2021 at 18:06
== END ==
PROVIDERS: PCP Family Medicine; Referring Provider Obstetrics & Gynecology; Visit Provider Obstetrics & Gynecology
DX: R10.9 Unspecified abdominal pain (principal)
CPT/HCPCS: 76830; 76856

== ENCOUNTER → 2023-05-25 09:44 | Outpatient (CLI) | payer OTHER, MEDICAID, SELFPAY ==
--- NOTE | 2023-05-25 09:46 | DI.CT.S_ITS ---
PROCEDURE: CT LUNG LOW DOSE SCREENING INDICATIONS: Personal history of nicotine dependence TECHNIQUE: Noncontrast 2.0-2.5 mm thick sections acquired from the pulmonary apices to the posterior costophrenic angles. 7 mm thick axial MIP, and 5 mm coronal and sagittal reformats were then acquired. For radiation dose reduction, the following was used: automated exposure control, adjustment of mA and/or kV according to patient size. COMPARISON: [facility], CT, CT CHEST WO CON, 12/19/2019, 11:17. CT chest dated 12/19/2019. FINDINGS: Image quality: Diagnostic. Lower Neck: No enlarged lymph nodes. Thyroid: No thyroid nodules which require sonographic follow up, per consensus guidelines. Axillae: No enlarged lymph nodes. Chest Wall: Postop changes of mastectomy Bones: Kyphosis. No suspicious osseous lesion Lungs and Pleura: No pneumothorax or pleural effusions. Severe centrilobular emphysematous changes with scarring with juxtapleural scarring appears similar to prior study on 12/19/2019 . Areas of scarring include the right apex, right anterior middle lobe. Through juxtapleural pulmonary nodules also noted. Heart: Heart size is normal. No pericardial effusion. Severe coronary calcifications present. Thoracic Vessels: The aorta and pulmonary arteries demonstrate normal size. Mediastinum and Angie: No enlarged lymph nodes. Esophagus: No wall thickening. No hiatal hernia. Upper Abdomen: Pneumobilia, partially visualized biliary stents IMPRESSION: Severe emphysematous lung changes with scarring, stable LUNG-RADS 2; continued annual screening, if eligible. Clinically Significant Non-pulmonary Findings: Pneumobilia, partially visualized biliary stent noted. Mastectomy changes. Dictated by: Yimi Hall M.D. on 05/25/2023 at 11:08 Approved by: Yimi Hall M.D. on 05/25/2023 at 11:30
== END ==
LOC: CT 09:45
PROVIDERS: PCP Family Medicine; Referring Provider Family Medicine; Visit Provider Family Medicine
DX: Z87.891 Personal history of nicotine dependence (principal); Z12.2 Encounter for screening for malignant neoplasm of respiratory organs; R91.8 Other nonspecific abnormal finding of lung field; I25.10 Atherosclerotic heart disease of native coronary artery without angina pectoris
CPT/HCPCS: 71271